=== PATIENT | female | born 1970 | race Two or more races ===

== ENCOUNTER 2024-07-11 08:50 | Day surgery (SDC) | payer OTHER ==
[2024-07-05 08:38] VITALS: BP 119/83
[2024-07-05 08:49] LABS: HEMATOCRIT 40.2 % (36.0-45.00); HEMOGLOBIN 13.9 g/dL (12.0-15.00); MEAN CELL VOLUME 89.9 fL (80.00-100.00); MEAN CORPUSCULAR HGB CONC 34.5 g/dl (32.0-36.0); PLATELET COUNT 182 K/uL (150-450); RED BLOOD COUNT 4.47 M/uL (4.00-6.00); RED CELL DISTRIBUTION WIDTH 13.5 % (11.5-14.5)
[2024-07-05 08:53] LABS: PH,URINE 5.5 (5.0-8.0); URINE APPEARANCE Clear; URINE BILIRRUBIN Negative (NEGATIVE); URINE BLOOD Negative; URINE COLOR Yellow; URINE GLUCOSE Negative (NEGATIVE); URINE KETONE Negative (NEGATIVE); URINE LEUKOCYTE Negative; URINE NITRATE Negative; URINE PROTEIN Negative (NEGATIVE); URINE UROBILINOGEN 0.2 E.U./dl
[2024-07-05 08:57] LABS: URINE BACTERIA 4499.4 uL (0.0-1933); URINE EPITHELIAL CELLS 49.1 uL (0.0-38.8); URINE RBC 6.5 uL (0.0-20.8); URINE WBC 21.1 uL (0.0-23.2)
[2024-07-05 09:08] LABS: PARTIAL THROMBOPLASTIN TIME 23.2 SECONDS (22.0-34.0); PROTHROMBIN TIME 10.9 SECONDS (9.0-11.5)
[2024-07-05 09:10] LABS: URINE CAST 0.61 uL (0.0-1.40)
[2024-07-05 09:12] LABS: URINE YEAST Negative /hpf
[2024-07-05 09:33] LABS: ALBUMIN 3.8 gm/dL (3.4-5.0); BILIRUBIN TOTAL 0.69 mg/dL (0.3-1.2); CALCIUM 8.9 mg/dL (8.5-10.1); CREATININE SERUM 0.61 mg/dL (0.55-1.02); GFR 102.21; GLOBULINA 3.3 G/DL (2.4-3.5); POTASSIUM 4.3 mEq/L (3.5-5.1); TOTAL PROTEIN 7.1 gm/dL (6.4-8.2)
[~2024-07-11] VITALS: Ht 167.6 cm; Wt 78.0 kg
[2024-07-11] MEDS ORDERED: MORPHINE SULFATE 4 MG/ML VIAL IV ONE ×2 (16:45→20:00)
[2024-07-11] MEDS ORDERED: METHYLPREDNISOLONE ACETATE 80 MG/ML VIAL IJ ONE (16:45)
[2024-07-11] MEDS ORDERED: CEFAZOLIN SODIUM 1,000 MG VIAL IV ONE ×2 (16:45→17:30)
[2024-07-11] MEDS ORDERED: DUI500 PO (17:26)
[2024-07-11] MEDS ORDERED: TRAM1TAB98 PO (17:26)
[2024-07-11] MEDS ORDERED: MEPERIDINE HCL/PF 25 MG/ML VIAL IM PRN (17:30)
[2024-07-11] MEDS ORDERED: OxyCODONE HCL/APAP UD (PERCOCET) PO PRN (17:30)
[2024-07-11] MEDS ORDERED: PROMETHAZINE HCL 25 MG/ML AMPUL IM PRN (17:30)
== END 2024-07-11 22:15 | disposition home or self-care (01) ==
LOC: CIR.AMB 08:50
PROVIDERS: ATTEND Orthopaedic Surgery Sports Medicine
DX: S83.281A Other tear of lateral meniscus, current injury, right knee, initial encounter (principal); M22.41 Chondromalacia patellae, right knee; M23.51 Chronic instability of knee, right knee; M67.51 Plica syndrome, right knee; M17.11 Unilateral primary osteoarthritis, right knee; I10 Essential (primary) hypertension; E78.5 Hyperlipidemia, unspecified